=== PATIENT | male | born 1980 | race American Indian/Alaskan Native ===

== ENCOUNTER 2020-08-21 10:49 | Emergency (ER) | payer MEDICAID ==
[2020-08-21 11:31] VITALS: BP 136/79
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
== END 2020-08-21 12:30 | disposition home or self-care (01) ==
LOC: ED 10:49
DX: M54.2 Cervicalgia (principal); M54.5 Low back pain; N18.4 Chronic kidney disease, stage 4 (severe); Z79.899 Other long term (current) drug therapy; Z88.8 Allergy status to other drugs, medicaments and biological substances; Z98.890 Other specified postprocedural states
CPT/HCPCS: 99282